=== PATIENT | male | born 1955 | race Caucasian/White ===

== ENCOUNTER → 2019-04-02 | Outpatient (REF) | payer BC | LOC: M LAB LCGH 13:50 | PROVIDERS: ATTEND Surgery | DX: L57.0 Actinic keratosis (principal) ==

== ENCOUNTER → 2023-08-17 | Outpatient (REF) | payer MEDICARE | LOC: M SFHCPLAZ 09:55 | PROVIDERS: ATTEND Nurse Practitioner Family | DX: D48.9 Neoplasm of uncertain behavior, unspecified (principal) ==